=== PATIENT | male | born 1975 | race Caucasian/White ===

== ENCOUNTER 2021-10-01 22:01 | Emergency (ER) | payer OTHER ==
[2021-10-01 22:32] LABS: HEMOGLOBIN 14.5 gm/dl (14.0-17.5); RED BLOOD COUNT 4.73 M/UL (4.20-5.50); WHITE BLOOD COUNT 9.6 K/UL (4.5-11.0)
[2021-10-01 23:20] LABS: BUN/CREATININE RATIO 9 (0-10)
[2021-10-02] MEDS ORDERED: KEFLEX CAP 250250 MG PO (00:37)
== END 2021-10-02 00:45 | disposition home or self-care (01) ==
LOC: ER1 22:01
PROVIDERS: Emergency Medicine
DX: S31.119A Laceration without foreign body of abdominal wall, unspecified quadrant without penetration into peritoneal cavity, initial encounter (principal); F17.200 Nicotine dependence, unspecified, uncomplicated; Z23 Encounter for immunization; W26.0XXA Contact with knife, initial encounter
CPT/HCPCS: 71260; 80053; 85025; 90471; 90715; 99284; G0480; Q9967